=== PATIENT | female | born 1945 | race African-American/Black ===

== ENCOUNTER → 2017-03-21 | Outpatient (CLI) | payer OTHER ==
[~2017-03-21] MED LIST: ACTOS30 MG; ASCRIPTIN ENTER81 MG PO; BACTROBAN2% NAS; CLONIDINE; CLONIDINE0.2 MG PO; COLACE100 MG PO; HYDRALAZINE100 MG PO; HYDROCHLOROTHIA25 MG; JANUVIA100 MG PO; JANUVIA50 MG PO; K-DUR 20MEQ20 MEQ PO; KCL; LABETALOL300 MG PO; LANTUS100 U/ML SC; LASIX40 MG PO; LEVAQUIN750 MG PO; METFORMIN HCL500 MG PO; METOPROLOL50 MG PO; NIFEREX150 MG PO; NORVASC5 MG PO; PRAVASTATIN SOD40 MG; QUINAPRIL40 MG PO; VITAMIN D; VITAMIN D50000 I2 PO; ZOLOFT50 MG PO
[2017-03-21 11:42] LABS: BASO # 0.1 10*3/uL (0.0-0.1); BASO % 0.8 % (0.0-1.0); EOS # 0.2 10*3/uL (0.0-0.4); EOS % 3.1 % (1.0-4.0); HEMATOCRIT 32.6 % (37.0-47.0); HEMOGLOBIN 10.2 g/dl (12.0-16.0); LYMPH # 1.9 10*3/uL (1.3-4.4); LYMPH % 30.1 % (27.0-41.0); MEAN CELL VOLUME 89.3 fl (81.0-99.0); MEAN CORPUSCULAR HGB 27.9 pg (27.0-31.0); MEAN CORPUSCULAR HGB CONC 31.3 g/dl (33.0-37.0); MEAN PLATELET VOLUME 10.1 fl (9.6-12.3); MONO # 0.4 10*3/uL (0.1-1.0); MONO % 6.8 % (3.0-9.0); NEUT # 3.8 10*3/uL (2.3-7.9); NEUT % 58.9 % (47.0-73.0); PLATELET COUNT AUTOMATED 221 10*3/uL (130-400); RED BLOOD COUNT 3.65 10*6/uL (4.10-5.10); RED CELL DISTRI WIDTH 14.3 % (0-14.5); WHITE BLOOD COUNT 6.4 10*3/uL (4.8-10.8)
[2017-03-21 12:00] LABS: BILIRUBIN NEGATIVE (NEGATIVE); BLOOD NEGATIVE (NEGATIVE); CLARITY CLOUDY (CLEAR); COLOR YELLOW (YELLOW); GLUCOSE NEGATIVE (NEGATIVE); KETONE TRACE (NEGATIVE); LEUKO ESTERASE 3+ (NEGATIVE); NITRITE NEGATIVE (NEGATIVE); PROTEIN NEGATIVE (NEGATIVE); UROBILINOGEN 0.2 E.U./dl (0.2-1.0)
[2017-03-21 12:02] LABS: URINE TP/CRE RATIO 0.1 (<0.21)
[2017-03-21 12:07] LABS: ALBUMIN 3.5 gm/dl (3.1-4.5); PHOSPHOROUS 3.5 mg/dL (2.5-4.9); POTASSIUM 4.2 mmol/L (3.5-5.1)
[2017-03-21 12:08] LABS: BACTERIA 2+; EPITHELIAL CELLS 16-20; WBC TNTC wbc/hpf (0-5)
[2017-03-21 12:30] LABS: FERRITIN 92.5 ng/mL (10.0-291.0); VITAMIN D, 25-HYDROXY 29.2 ng/mL (30-100)
[2017-03-21 12:31] LABS: PTH INTACT 267.1 pg/mL (14.0-72.0)
== END | disposition home or self-care (01) ==
LOC: LAB 11:11
PROVIDERS: Internal Medicine Nephrology
DX: N18.4 Chronic kidney disease, stage 4 (severe) (principal); D64.9 Anemia, unspecified

== ENCOUNTER → 2017-05-07 | Outpatient (CLI) | payer OTHER | END | disposition home or self-care (01) | LOC: CARD 07:30 | DX: I08.1 Rheumatic disorders of both mitral and tricuspid valves (principal); I27.0 Primary pulmonary hypertension; E78.2 Mixed hyperlipidemia ==

== ENCOUNTER → 2017-07-25 | Outpatient (CLI) | payer OTHER ==
[2017-07-25 14:01] LABS: BASO % 0.6 % (0.0-1.0); EOS # 0.2 10*3/uL (0.0-0.4); EOS % 2.6 % (1.0-4.0); HEMATOCRIT 35.2 % (37.0-47.0); HEMOGLOBIN 11.2 g/dl (12.0-16.0); LYMPH # 1.7 10*3/uL (1.3-4.4); LYMPH % 26.6 % (27.0-41.0); MEAN CELL VOLUME 90.3 fl (81.0-99.0); MEAN CORPUSCULAR HGB 28.7 pg (27.0-31.0); MEAN CORPUSCULAR HGB CONC 31.8 g/dl (33.0-37.0); MONO # 0.3 10*3/uL (0.1-1.0); MONO % 4.3 % (3.0-9.0); NEUT # 4.1 10*3/uL (2.3-7.9); NEUT % 65.7 % (47.0-73.0); PLATELET COUNT AUTOMATED 257 10*3/uL (130-400); RED CELL DISTRI WIDTH 14.6 % (0-14.5); WHITE BLOOD COUNT 6.2 10*3/uL (4.8-10.8)
[2017-07-25 14:09] LABS: BILIRUBIN NEGATIVE (NEGATIVE); BLOOD NEGATIVE (NEGATIVE); CLARITY CLOUDY (CLEAR); COLOR YELLOW (YELLOW); GLUCOSE NEGATIVE (NEGATIVE); KETONE TRACE (NEGATIVE); LEUKO ESTERASE 2+ (NEGATIVE); NITRITE POSITIVE (NEGATIVE); SPECIFIC GRAVITY 1.015 (1.005-1.030); UROBILINOGEN 0.2 E.U./dl (0.2-1.0)
[2017-07-25 14:24] LABS: BACTERIA 4+; EPITHELIAL CELLS 25-30; WBC 41-50 wbc/hpf (0-5); YEAST 3+
[2017-07-25 14:31] LABS: CREATININE 2.84 mg/dL (0.55-1.02); POTASSIUM 4.3 mmol/L (3.5-5.1)
[2017-07-25 16:04] LABS: FERRITIN 110.7 ng/mL (10.0-291.0); VITAMIN D, 25-HYDROXY 32.3 ng/mL (30-100)
== END | disposition home or self-care (01) ==
LOC: LAB 13:22
PROVIDERS: Internal Medicine Nephrology
DX: N18.4 Chronic kidney disease, stage 4 (severe) (principal); D64.9 Anemia, unspecified; N25.81 Secondary hyperparathyroidism of renal origin

== ENCOUNTER 2019-05-25 05:58 | Inpatient (IN) | payer OTHER, MEDICAID ==
[~2019-05-25] VITALS: Ht 172.7 cm; Wt 86.9 kg
[2019-05-25 06:10] VITALS: BP 128/40
[2019-05-25 06:30] LABS: BASO % 0.4 % (0.0-1.0); EOS # 0.2 10*3/uL (0.0-0.4); EOS % 1.5 % (1.0-4.0); HEMATOCRIT 33.4 % (37.0-47.0); HEMOGLOBIN 10.6 g/dl (12.0-16.0); LYMPH # 1.5 10*3/uL (1.3-4.4); LYMPH % 13.8 % (27.0-41.0); MEAN CELL VOLUME 93.8 fl (81.0-99.0); MEAN CORPUSCULAR HGB 29.8 pg (27.0-31.0); MEAN CORPUSCULAR HGB CONC 31.7 g/dl (33.0-37.0); MEAN PLATELET VOLUME 10.2 fl (9.6-12.3); MONO # 0.6 10*3/uL (0.1-1.0); MONO % 5.8 % (3.0-9.0); NEUT # 8.6 10*3/uL (2.3-7.9); PLATELET COUNT AUTOMATED 237 10*3/uL (130-400); RED BLOOD COUNT 3.56 10*6/uL (4.10-5.10); RED CELL DISTRI WIDTH 11.9 % (0-14.5)
[2019-05-25 06:41] LABS: ALBUMIN 3.1 gm/dl (3.1-4.5); CREATININE 3.43 mg/dL (0.55-1.02); POTASSIUM 3.6 mmol/L (3.5-5.1); TOTAL PROTEIN 7.3 gm/dL (6.4-8.2)
[2019-05-25 06:42] LABS: TROPONIN I 0.04 ng/ml (<0.045)
[2019-05-25 06:51] LABS: ACT PARTIAL THROMBO TIME 21.8 SECONDS (20.0-32.1)
[2019-05-25 07:54] VITALS: BP 130/44
--- NOTE | 2019-05-25 08:00 | NUR ---
PT BEDSIDE GLUCOSE WAS 64, PT WAS GIVEN ORANGE JUICE AND CRACKERS. PT IS AWAKE AND DRY. WILL REASSES.
--- NOTE | 2019-05-25 08:30 | NUR ---
JOSE GUADALUPE TROP REPORTED TO DR HARRISON.
--- NOTE | 2019-05-25 09:00 | NUR ---
PT RESTING WITH FAMILY AT THE BEDSIDE. BEDSIDE GLUCOSE 120. PT DENIES ANY NAUSEA AT THIS TIME. PT DOES C/O WEAKNES A ND DIZINESS WITH MOVEMENT. BP 134/46.
[2019-05-25 09:18] VITALS: BP 134/46
[2019-05-25 10:13] VITALS: BP 126/71
[2019-05-25 10:33] VITALS: BP 139/40
--- NOTE | 2019-05-25 10:33 | NUR ---
PATIENT ARRIVED TO FLOOR VIA CART FROM ER AT THIS TIME. ESCORTED BY RN, UNMONITORED, ON ROOM AIR. TRANSFERRED TO BED VIA STAND AND PIVOT WITH 2 ASSIST. ASSESSMENT AND VITAL SIGNS COMPLETED. CALL LIGHT WITHIN REACH. WILL CONTINUE TO MONITOR.
[2019-05-25 10:56] VITALS: BP 139/40
--- NOTE | 2019-05-25 11:05 | NUR ---
DR. CHAVEZ NOTIFIED OF PATIENT ADMISSION AND MEDICATION RECQ COMPLETED. ORDERS RECEIVIED.
[2019-05-25] MEDS ORDERED: GLYBURIDE5 MG PO (11:14)
[2019-05-25] MEDS ORDERED: HYDRALAZINE10 MG PO (11:16)
[2019-05-25] MEDS ORDERED: ALBUTEROL S5 MG/1 ML INH (11:19)
[2019-05-25] MEDS ORDERED: Ipratropium Brom3 ML INH ×2 (11:22→11:24)
--- NOTE | 2019-05-25 12:00 | NUR ---
MESSAGE LEFT WITH ANSWERING SERVICE ON CONSULT FOR PERITONEAL DIALYSIS. CALL BACK REQUESTED.
--- NOTE | 2019-05-25 12:33 | NUR ---
CALLED [facility] NURSE ANSWERING SERVICE TO FIND OUT IF PERITONEAL DIALYSIS IS AN OPTION FOR PATIENT WHILE HERE. PER PATIENTS HOME COMPANY, PT IS UNABLE TO BRING EQUIPTMENT FROM HOME INTO THE HOSPITAL.
--- NOTE | 2019-05-25 12:35 | NUR ---
MESSAGE LEFT WITH DR. CHAVEZ OFFICE STAFF WITH TROPONIN RESULTS. WAITING FOR RETURN CALL.
--- NOTE | 2019-05-25 13:16 | NUR ---
DR CHAVEZ NOTIFIED OF INABILITY OF THIS FACILITY TO PROVIDE PATIENT WITH PERITONEAL DIALYSIS. ORDERS RECEIVED TO DISCHARGE PATIENT FROM THIS FACILITY AND HAVE HER TRANSFERRED VIA AMBULANCE TO [facility].
--- NOTE | 2019-05-25 15:12 | NUR ---
DISCHARGE INSTRUCTIONS REVIEWED WITH PATIENT. PT UNDERSTANDS THAT SHE WILL BE DISCHARGED FROM HERE TO [facility] TODAY. IV REMAINS IN LEFT ARM, PT HAS DIALYSIS CATH IN ABDOMEN. FAMILY AT BEDSIDE, NO QUESTIONS ON DISCHARGE. [facility] EV[facility] TO WATCH REPAIR PERSON PATIENT IN 15 MINNUTES
--- NOTE | 2019-05-25 15:21 | NUR ---
AMBULANCE HERE TO [facility] PATIENT FOR TRANSPORT TO [facility]
--- NOTE | 2019-05-25 16:30 | NUR ---
PHYSICAL THERAPY Nursing screen received and chart reviewed. Physical therapy referral received. Patient discharged 05/25/19. Thank you. Azul Ma,PT,DPT
--- NOTE | 2019-05-25 17:21 | NUR ---
Nursing screen received and patient transferred from this facility. Tonya Reddy OTR/
== END 2019-05-25 15:21 | disposition home or self-care (01) | DRG 639 ==
LOC: ED 05:58 → EDHOLD 09:53 → 4E 10:11
PROVIDERS: Emergency Medicine; ADMIT Internal Medicine
DX: E11.649 Type 2 diabetes mellitus with hypoglycemia without coma (principal); I10 Essential (primary) hypertension; J45.909 Unspecified asthma, uncomplicated; E78.00 Pure hypercholesterolemia, unspecified; Z86.14 Personal history of Methicillin resistant Staphylococcus aureus infection; Z90.712 Acquired absence of cervix with remaining uterus; Z82.49 Family history of ischemic heart disease and other diseases of the circulatory system; Z83.3 Family history of diabetes mellitus; Z82.3 Family history of stroke; W19.XXXA Unspecified fall, initial encounter